=== PATIENT | female | born 2000 | race Caucasian/White ===

== ENCOUNTER 2025-04-19 09:39 | Outpatient (RCR) | payer BC, SELFPAY ==
--- NOTE | 2025-04-19 11:38 | HMH.OPLYMPH ---
Rehab Lymphedema Evaluation Rehab Lymphedema Evaluation Start: 04/19/25 11:16 Freq: Status: Active Protocol: Document 04/19/25 11:16 ALVARO (Rec: 04/19/25 11:38 PHORNE [id number]) E-signed By Isrrael Delaney, PT Subjective/History History History This is the initial PT Lymphedema/Lipidema eval for Liliana Brown, 24 yowf who presents with c/o B LE increased edema, pain, and tenderness to palpation due to underlying Lipidema. She reports her legs have felt different since high school and she has noticed increasing discomfort for ~10-12 yrs now. She reports pain and heaviness in B LE limit her general mobility, especially walking or running. She reports difficulty finding appropriate clothes for her legs and states, I don't really wear shorts any more because of it. She reports edema is increased with prolonged dependent positioning of her legs as well. She has no significant PMH, but she does note multiple female relatives, including her mother, with similar symptoms. Subjective Subjective Currently she has no pain in B LE, 0/10, at worst her pain is 8/10 in B LE. She reports 2/4 TTP to B thighs. She c/o bruising easier than expected. She has mild grainy nodules noted to B LE with light palpation. She has 8/9 on beighton scale of hyperflexibility and LLIS: 41. Lipidema Stage 1, Type III New diagnosis of No cancer in past 12 months? Lymphedema Eval Classification of Lymphedema Secondary Lymphedema Yes: Lipolymphedema Stemmer's sign Stemmer's Sign no Stage of Lymphedema Lymphedema stages Stage I (Pitting edema, reduces w/ elevation, no fibrosis) Skin Changes Dry Skin Yes Skin Folds Yes Discoloration of Yes Skin Other Changes Yes Pain Scale Pain Scale (0-10) 8 Radiation Therapy Has received no radiation therapy Chemo Therapy Has received chemo no therapy Affected Extremities Areas Affected by Right Lower Extremity,Left Lower Extremity Lymphedema/Edema Lower Extremity Measurements Right MTP Measurement (cm) 19.8 Heel Measurement (cm 30.6 ) 10 cm Proximal to 28.5 Lateral Malleoli Measurement (cm) 20 cm Proximal to 35.0 Lateral Malleoli Measurement (cm) 30 cm Proximal to 38.7 Lateral Malleoli Measurement (cm) 40 cm Proximal to 0 Lateral Malleoli Measurement (cm) 50 cm Proximal to 0 Lateral Malleoli Measurement (cm) 60 cm Proximal to 0 Lateral Malleoli Measurement (cm) Lower Extremity 152.6 Measurement Total ( cm) Left MTP Measurement (cm) 20.9 Heel Measurement (cm 29.7 ) 10 cm Proximal to 26.2 Lateral Malleoli Measurement (cm) 20 cm Proximal to 35.3 Lateral Malleoli Measurement (cm) 30 cm Proximal to 38.6 Lateral Malleoli Measurement (cm) 40 cm Proximal to 0 Lateral Malleoli Measurement (cm) 50 cm Proximal to 0 Lateral Malleoli Measurement (cm) 60 cm Proximal to 0 Lateral Malleoli Measurement (cm) Lower Extremity 150.7 Measurement Total ( cm) Manual Lymphatic Drainage Treatment Area MLD Treatment Area Right Lower Extremity,Left Lower Extremity Wound Problems/Impairments Impairments Problems/ Palpation Tenderness,Impaired Strength,Impaired Impairmments Endurance,Impaired Walking,Impaired Standing,Impaired Dressing,Impaired Household Care,Impaired Stair Climbing,Impaired Recreational Activities,Impaired Running,Lymphedema Present,Subjective C/O Pain,Impaired Self Care/Self Management Prognosis Rehab Potential Good Comment Skilled therapy is indicated to aid reduction in pain, improve ability to ambulate without pain, and increase ability to perform all ADLs in order to return pt to [facility]. Clinical Impression Consistent with Yes Diagnosis Lymphedema Patient Goals Lymphedema Patient Goals Lymphedema Short In 2 wks pt will complete these goals in order to aid Term Patient Goals improvement in function specifically with all ADLs: 1) Decrease pain in B LE with walking to 6/10 at worst Lymphedema Snf In 4 wks pt will complete these goals in order to aid Patient Goals improvement in function specifically with all ADLs: 1) Decrease pain in B LE with walking to 3/10 at worst 2) Decrease B LE circumferential measurements by 5 cm ea total 3) Reduce TTP to 1/4 in B LE 4) Be independent with Lipidema management via [facility] Outpatient Therapy Plan of Care Treatment Plan May Include Therapeutic Exercise Yes Including Home Exercise Program Manual Therapy Yes Techniques Neuromuscular Re- Yes education Therapeutic Yes Activities to Return to Previous Functional/Work Level ADL/Self Care Yes Education Orthotics/Bracing/ Yes Splinting Vasopneumatic Yes Compression Pump Manual Lymphatic Yes Drainage Eval/Re-Eval Yes Frequency Times per week 2 Duration Number of Weeks 4 Addendums This patient is a No candidate for social or vocational rehab ? Patient/Guardian Yes verbally acknowledges understanding of treatment program and consents to further treatment? Patient/Guardian Yes verbally acknowledges understanding of diagnosis, prognosis and goals for treatment? Eval Complexity PT Charges 60673 - Moderate Complexity PHYSICIAN CERTIFICATION: I certify the specified therapy services for Liliana Brown are required, authorized, and reviewed every 30 days.
== END 2025-04-19 23:59 | disposition home or self-care (01) ==
LOC: PT 09:39
PROVIDERS: PCP Internal Medicine; Visit Provider Internal Medicine
DX: R60.9 Edema, unspecified (principal)
CPT/HCPCS: 97162